=== PATIENT | male | born 1985 | race Caucasian/White ===

== ENCOUNTER 2019-12-11 13:09 | Emergency (ER) | payer MEDICAID, SELFPAY ==
[2019-12-11 13:11] VITALS: BP 157/110; PULSE 88; RESP 14; TEMP 36.3; O2SAT 98; BMI 20.7
--- NOTE | 2019-12-11 13:26 | EKG12_ITS ---
Test Reason : Blood Pressure : / mmHG Vent. Rate : 071 BPM Atrial Rate : 071 BPM P-R Int : 148 ms QRS Dur : 086 ms QT Int : 400 ms P-R-T Axes : 070 064 051 degrees QTc Int : 434 ms Normal sinus rhythm Normal ECG Confirmed by GERMAINE BRAGG MD ([id number]), editor & co founder LINDA BAILEY ([id number] on 12/16/2019 2:09:17 PM Referred By: BELINDA/MODESTO Confirmed By:GERMAINE BRAGG MD
--- NOTE | 2019-12-11 13:26 | RAD_ITS ---
STUDY: X-RAY CHEST REASON FOR EXAM: Male, 34 years old. no hx of seizures, but was found today on the floor shaking TECHNIQUE: Single AP portable view of the chest. COMPARISON: None. FINDINGS: The lungs are clear and expanded. There is no demonstrated pleural abnormality. Normal size heart. Normal mediastinum and vazquez. Normal visualized pulmonary arteries. Normal visualized aortic arch and descending thoracic aorta. Normal visualized thoracic spine. Normal visualized ribs, clavicles, and shoulders. There is no demonstrated abnormality of the visualized soft tissue structures of the upper abdomen. RAD/Chest 1 View (Portable) IMPRESSION: Normal x-ray examination of the chest. Electronically Signed: Luisana Huston, at 14:57 EDT Tel , Service support ,
--- NOTE | 2019-12-11 13:26 | CT_ITS ---
STUDY: CT BRAIN WITHOUT CONTRAST REASON FOR EXAM: Male, 34 years old. Seizures RADIATION DOSAGE (If Supplied By Facility): CTDIvol = ( 44.99 ) mGy, DLP = ( 779.24 ) mGycm TECHNIQUE: Transaxial CT imaging of the brain was performed without administration of intravenous contrast material. Individualized dose optimization techniques were used for this CT. COMPARISON: No relevant priors. FINDINGS: Normal soft tissue structures. Normal calvarium. Normal size ventricles and extra-axial spaces for the patient''s age. Normal white matter tracts of the cerebral hemispheres. Normal basal ganglia and thalami. Normal brainstem. Normal cerebellum. There is no intracranial hemorrhage. There are no findings of an acute ischemic infarction. Minimal mucosal thickening in the right maxillary sinus CT/Brain/Head without Contrast IMPRESSION: Normal unenhanced CT scan of the brain. Electronically Signed: Camacho Deleon MD at 14:22 EDT , Service support ,
[2019-12-11 13:43] LABS: Absolute Lymphocyte Count 1.41 X10^3/uL (0.83-4.51); Absolute Neutrophil Count 7.7 X10^3/uL (2.0-7.7); Basophil# 0.06 X10^3/uL; Basophil% 0.6 % (0-1); Eosinophil# 0.05 X10^3/uL; Eosinophils% 0.5 % (0-5); Hematocrit 44.4 % (40-54); Hemoglobin 14.9 g/dL (13.0-16.5); Lymphocyte # 1.41 X10^3/ul (4.0); Mean Corp Hgb Conc 33.6 g/dL (32-36); Mean Corpuscular Hgb 31.2 pg (27.0-32.0); Mean Corpuscular Volume 93.1 fL (80-94); Mean Platelet Vol. 9.4 fl (6.2-12.0); Monocyte# 0.83 X10^3/uL; Monocyte% 8.3 % (0-10); NRBC Flagged by Analyzer 0 % (0-5); Neutrophil # 7.66 X10^3/uL (2.7-7.7); Neutrophil % 76.2 % (47-70); Platelet Count 262 K/mm3 (150-450); RBC Distribution Width CV 12.7 % (11.6-14.6); RBC Distribution Width SD 43.4 fl (35.1-43.9); Red Blood Count 4.77 M/mm3 (4.6-6.2); White Blood Count 10.1 K/mm3 (4.4-11.0)
[2019-12-11 13:45] LABS: Bacteria 0 SEEN /hpf (None Seen); Mucous, Urine 0 SEEN /hpf (<or=2+); Red Blood Cells-Urine 0 SEEN /hpf (0-5); Squamous Epithelial Cells - UA 0 SEEN /hpf (0-5); White Blood Cells 0 SEEN /hpf (0-5)
--- NOTE | 2019-12-11 13:48 | ED.VIS.GEN ---
History of Present Illness Chief Complaint: Seizure Informant: Patient Onset: Today Context: Sudden Onset Narrative: Patient is a 34-year-old male presenting with seizure activity. Patient was at work when he suddenly called everything go black and passed out. His coworker states he had generalized seizure activity. He was out for approximately 8 minutes until he started to come to. Is not clear if he was actually seizing this whole time. This happened about 1 hour prior to arrival. Patient denies any urinary incontinence or feeling like he bit his tongue. He does not have any medical issues. He states he has not seen a doctor in a couple years. He admits to weekly beer drinking and occasional marijuana use. He denies any other illicit substance use. He denies any history of alcohol withdrawal. He did not recently stop drinking. He notes he normally drinks 2 cups of coffee today and instead had small red bowl this morning. He notes his father had one seizure in the past but attributed to high blood pressure. Patient currently feels a little bit weak but otherwise well. He states he has not eaten today. He denies any other complaints at this time. Past Medical History - Allergies and Home Meds Allergies/Adverse Reactions: Allergies No Known Allergies Allergy (Verified 12/11/19 13:10) Primary Care Physician: NOT,DEFINED [NON-STAFF] - Past Medical History: None Surgical History: no surgical history Smoking Status: Current every day smoker Alcohol: Heavy - 12 pack a week Drugs: Marijuana Review of Systems General: Denies: Chills, Fever, Sweats Eyes: Denies: Visual changes - bilaterally, Diplopia ENT: Denies: Rhinorrhea, Sore throat Cardiovascular: Denies: Chest pain, Palpitations Respiratory: Denies: Dyspnea, Cough, Dyspnea on exertion Gastrointestinal: Denies: Abdominal pain, Nausea, Vomiting, Diarrhea Genitourinary: Denies: Dysuria, Hematuria, Frequency Musculoskeletal: Denies: Back pain, Extremity Pain Skin: Denies: Rash, Wounds Neurological: Reports: - - Seizure like activity. Denies: Headache, Weakness, Numbness Physical Exam Vital Signs/Narrative: Vital Signs Temp Pulse Resp BP Pulse Ox 12/11/19 13:11 97.3 F L 88 14 157/110 H 98 Inital Vital Signs reviewed: Yes General: Well nourished, Well developed, No Acute Distress Head: Normocephalic, Atraumatic Eyes: Perrl, EOMI ENT: Moist mucous membranes, No rhinorrhea, TM's clear Neck: Supple, Nontender Cardiovascular: Regular rate, Regular rhythm, No murmurs Respiratory: No distress, CTA bilaterally, Chest nontender Abdomen: Soft, Nontender, Nondistended, Normal bowel sounds Back: Nontender, Normal Inspection Extremities: Nontender, No edema Skin: Normal color, No rash Neurological: Alert, Oriented x3, Cranial nerves II-XII grossly intact, Normal Strength, Normal Sensation, Normal Gait, - - Normal coordination Psychological: Normal affect, Normal Mood Diagnostic/Tx/Re-eval Clinical Impression(s) from Imaging Studies Brain CT 12/11/19 13:26 IMPRESSION: Normal unenhanced CT scan of the brain. Electronically Signed: Camacho Deleon MD at 14:22 EDT , Service support , Chest X-Ray 12/11/19 13:26 IMPRESSION: Normal x-ray examination of the chest. Electronically Signed: Luisana Huston at 14:57 EDT Tel , Service support , Laboratory Data 12/11/19 12/11/19 12/11/19 13:30 13:30 13:40 WBC 10.1 RBC 4.77 Hgb 14.9 Hct 44.4 MCV 93.1 MCH 31.2 MCHC 33.6 RDW Std Deviation 43.4 RDW Coeff of Fco 12.7 Plt Count 262 MPV 9.4 Immature Gran % (Auto) 0.400 Neut % (Auto) 76.2 H Lymph % (Auto) 14.0 L [place] % (Auto) 8.3 Eos % (Auto) 0.5 Baso % (Auto) 0.6 Absolute Neuts (auto) 7.7 Absolute Lymphs (auto) 1.41 Nucleated RBC % 0 Sodium 135 L Potassium 3.5 Chloride 103 Carbon Dioxide 24.0 Anion Gap 8 BUN 14 Creatinine 0.74 Estim Creat Clear Calc 128.72 Est GFR (MDRD) Af Amer 157 Est GFR (MDRD) Non-Af 130 BUN/Creatinine Ratio 18.9 Glucose 92 Calcium 8.7 Total Bilirubin 0.60 AST 71 H ALT 85 H Alkaline Phosphatase 39 L Total Protein 7.4 Albumin 4.2 Globulin 3.2 Albumin/Globulin Ratio 1.3 Urine Color Straw Urine Clarity Clear Urine pH 7.0 Ur Specific [place] 1.010 Urine Protein Negative Urine Glucose (UA) Normal Urine Ketones Negative Urine Occult Blood Negative Urine Nitrite Negative Urine Bilirubin Negative Urine Urobilinogen Normal Ur Leukocyte Esterase Negative Urine RBC 0 SEEN Urine WBC 0 SEEN Ur Squamous Epith Cells 0 SEEN Urine Bacteria 0 SEEN Urine Mucus 0 SEEN Urine Opiates Screen Urine Methadone Screen Ur Barbiturates Screen Ur Phencyclidine Scrn Ur Amphetamines Screen U Methamphetamin-MDMA U Benzodiazepines Scrn Urine Cocaine Screen U Cannabinoids Screen Ur Drug Screen Comment 12/11/19 13:40 WBC RBC Hgb Hct MCV MCH MCHC RDW Std Deviation RDW Coeff of Fco Plt Count MPV Immature Gran % (Auto) Neut % (Auto) Lymph % (Auto) [place] % (Auto) Eos % (Auto) Baso % (Auto) Absolute Neuts (auto) Absolute Lymphs (auto) Nucleated RBC % Sodium Potassium Chloride Carbon Dioxide Anion Gap BUN Creatinine Estim Creat Clear Calc Est GFR (MDRD) Af Amer Est GFR (MDRD) Non-Af BUN/Creatinine Ratio Glucose Calcium Total Bilirubin AST ALT Alkaline Phosphatase Total Protein Albumin Globulin Albumin/Globulin Ratio Urine Color Urine Clarity Urine pH Ur Specific [place] Urine Protein Urine Glucose (UA) Urine Ketones Urine Occult Blood Urine Nitrite Urine Bilirubin Urine Urobilinogen Ur Leukocyte Esterase Urine RBC Urine WBC Ur Squamous Epith Cells Urine Bacteria Urine Mucus Urine Opiates Screen NEGATIVE Urine Methadone Screen NEGATIVE Ur Barbiturates Screen NEGATIVE Ur Phencyclidine Scrn NEGATIVE Ur Amphetamines Screen NEGATIVE U Methamphetamin-MDMA NEGATIVE U Benzodiazepines Scrn NEGATIVE Urine Cocaine Screen NEGATIVE U Cannabinoids Screen NEGATIVE Ur Drug Screen Comment - Rhythm Strip Rhythm Strip: Sinus Rhythm Rate: 71 Ectopy: None - EKG Initial EKG Interpretation: Sinus Rhythm, - - Sinus rate him at a rate of 71 Normal intervals Normal axis Normal ST segments - Medical Decision Making Is evaluated for an episode of seizure-like activity. It was witnessed by a coworker and described as all over body shaking. Patient describes being postictal at the scene. Patient is returned to his baseline currently. He denies any seizure history. He has a normal neurologic exam. He has had no recent trauma. He denies any sudden alcohol cessation or significant drug use. Work-up including head CT, EKG, CBC and CMP are all unremarkable. Patient does not have any meningeal signs I do not suspect meningeal encephalitis. Patient is given [facility] to follow-up with in [place]. He is given seizure precautions and instructed not to drive or swim/bathe until cleared by neurology. Patient is counseled on signs and symptoms requiring return to the emergency room. As this is patient's first seizure and it was unwitnessed by medical staff I do not think prescribing antiepileptics is indicated at this time. Patient verbalizes agreement and understand this plan. Patient discharged home in stable and improved condition. ED Disposition - Plan for ED Patient: Disposition: Home or Assisted Living Diagnosis: Seizure-like activity Instructions: ED Seizure New Onset Unk Cause Additional Instructions: Please follow-up at the neuro care center in [place] Address is [address] [place] [address] Phone #[phone] Call them today or tomorrow and let them know you were seen in the ER for first-time seizure and need quick neurologic follow-up.
[2019-12-11 13:59] LABS: ALB/GLOB Ratio 1.3 RATIO (0.9-2.4); AST(SGOT) 71 U/L (15-37); Alanine Aminotransfer ALT/SGPT 85 U/L (16-61); Albumin, Serum 4.2 g/dL (3.2-5.0); Alkaline Phosphatase 39 U/L (45-117); Anion Gap 8 (5-15); BUN 14 mg/dL (7-18); BUN/Creat Ratio 18.9 RATIO (10-20); Calcium,Total 8.7 mg/dL (8.5-10.1); Chloride 103 mmol/L (98-107); Creatinine, Serum 0.74 mg/dL (0.70-1.30); EST Glomerular Filtration Rate 130 mL/min (>60); Est Glom Filt Rate - Afr Amer 157 mL/min (>60); Estimated Creatinine Clearance 128.72 ml/min; Globulin 3.2 g/dL (2.2-4.2); Glucose 92 mg/dL (74-106); Potassium 3.5 mmol/L (3.5-5.1); Protein, Total 7.4 g/dL (6.4-8.2); Sodium Level 135 mmol/L (136-145)
[2019-12-11 14:03] LABS: Color, Urine Straw (Yellow); Glucose, Dipstick Normal (Normal); Ketone-Dipstick Negative (Negative); Leukocyte Esterase-Dipstick Negative /ul (Negative); Nitrite-Dipstick Negative (Negative); Occult Blood-Urine Negative /ul (Negative); Protein-Dipstick Negative (Negative); Urine Bilirubin Dipstick Negative (Negative); Urine Clarity Clear (Clear); Urine Urobilinogen Normal (Normal)
[2019-12-11 14:11] LABS: Amphetamine Urine VISTA NEGATIVE (<1000 ng/mL); Barbiturate Urine VISTA NEGATIVE (< 200 ng/mL); Benzodiazepine Urine VISTA NEGATIVE (< 200 ng/mL); Cocaine Urine VISTA NEGATIVE (< 300 ng/mL); Ecstacy Urine VISTA NEGATIVE (< 500 ng/mL); Methadone Urine VISTA NEGATIVE (< 300 ng/mL); PCP Urine VISTA NEGATIVE (< 25 ng/mL); THC Urine VISTA NEGATIVE (< 50 ng/mL); Vista UDS pH Range 6
[2019-12-11 15:47] VITALS: BP 148/92; PULSE 89; RESP 16; O2SAT 98
== END 2019-12-11 15:48 | disposition home or self-care (01) ==
PROVIDERS: Emergency Provider Emergency Medicine
DX: R56.9 Unspecified convulsions (principal); F17.210 Nicotine dependence, cigarettes, uncomplicated; F10.10 Alcohol abuse, uncomplicated; F12.90 Cannabis use, unspecified, uncomplicated
CPT/HCPCS: 70450; 71045; 80053; 80307; 81001; 85025; 93005; 99284; A4216

== ENCOUNTER 2020-02-05 03:21 | Inpatient (IN) | payer MEDICAID, SELFPAY ==
[2020-02-05] VITALS (9 sets, daily range): BP systolic 102–131; BP diastolic 69–94; PULSE 108–140; RESP 16–20; TEMP 36.9–39; O2SAT 96–100; BMI 19.0; BMI 18.3; BMI 18.4
--- NOTE | 2020-02-05 03:27 | CT_ITS ---
STUDY: CT FACIAL BONES WITH CONTRAST REASON FOR EXAM: Male, 34 years old. RED AND SWOLLEN RT EYE,VOMITING RADIATION DOSAGE (If Supplied By Facility): CTDIvol = ( 29.38 ) mGy, DLP = ( 598.88 ) mGycm TECHNIQUE: The patient was scanned in a multi detector CT scanner. Transaxial imaging was performed following the intravenous administration of IV 100mL Isovue-370. Sagittal and coronal images were reconstructed. Individualized dose optimization techniques were used for this CT. COMPARISON: None. FINDINGS : There is right-sided periorbital soft tissue edema. There is preseptal edema. There is a suggestion of enhancement underside of the eyelid. There is no visualized intra-articular extraconal space inflammatory change. However there is a small focus of fluid and gas bubbles between the eyelid and outer layer of the anterior globe. There is edema of the lacrimal sac at the medial canthus. Normal orbital aleman .Normal nasal bones and anterior nasal spine. Normal facial bones. There is no demonstrated fracture. There is minimal mucosal thickening of the maxillary sinuses CT/Sinus/Facial Bone WITH Contras IMPRESSION: Findings are suspicious for right-sided preseptal cellulitis with acute conjunctivitis and probable developing acute edema or infection of the medial lacrimal gland. Visualized intraocular extraconal or retroconal space infection. Electronically Signed: Julieta Chavez MD at 4:25 EDT Tel , Service support ,
--- NOTE | 2020-02-05 03:28 | ED.VIS.GEN ---
History of Present Illness Chief Complaint: Eye Problem Informant: Patient Context: - - awoke w/ sx Timing: Continuous Quality: pain Location: around R eye, mainly below Current Severity: Severe Maximum Severity: Severe Worsened by: palpation Relieved by: leaving alone Associated Symptoms: chills Narrative: Patient states he went to bed around 9:00, he had some very minor soreness in the area below his right eye, but no swelling, lesions, pustules, recent injury or insect bites, itching, or any rash/color changes in the affected area. He woke up around 1 or 2 hours ago, with severe swelling and pain below his right eye. He presents here at almost 3:30 AM, having cold chills feeling febrile but is not, difficulty seen because of swelling, and clear discharge coming from the eye. He is healthy with no medical problems denies IV drug use. He does not use contacts. He is supposed to have glasses but does not currently have any. Past Medical History - Allergies and Home Meds Allergies/Adverse Reactions: Allergies No Known Allergies Allergy (Verified 12/11/19 13:10) Primary Care Physician: Care Physician,No Primary [Primary Care Provider] - Past Medical History: None Surgical History: no surgical history Smoking Status: Current every day smoker Review of Systems General: Reports: Chills. Denies: Fever, Sweats Eyes: Reports: Blurred vision - right - a little, - - Trouble seeing out of right eye because of swelling. Tearing/discharge from right eye. Severe pain in facial tissues below right eye.. Denies: Diplopia ENT: Denies: Rhinorrhea, Sore throat Cardiovascular: Denies: Chest pain, Palpitations Respiratory: Denies: Dyspnea, Cough, Dyspnea on exertion Gastrointestinal: Denies: Abdominal pain, Nausea, Vomiting, Diarrhea, Melena, Hematochezia Genitourinary: Denies: Dysuria, Hematuria, Frequency Musculoskeletal: Denies: Back pain, Extremity Pain Skin: Reports: Abscess. Denies: Rash, Wounds Neurological: Denies: Headache, Weakness, Numbness Physical Exam Vital Signs/Narrative: Vital Signs Temp Pulse Resp BP Pulse Ox 02/05/20 03:22 98.4 F 134 H 16 125/70 H 99 Inital Vital Signs reviewed: Yes General: Well nourished, Well developed, No Acute Distress Head: Normocephalic, Atraumatic Eyes: Perrl - no APD, EOMI - EOM are intact, painful in right eye, - - Mild conjunctival injection diffusely right eye. Mild clear fluid discharge from right eye, no purulent discharge. There is periorbital edema of the eyelids of the right eye, worse inferior, very tender. He is able to see but barely due to swelling of the eyelids. ENT: Moist mucous membranes, No rhinorrhea, - - Tense very tender indurated skin below the right eye and including the inferior eyelid, consistent with an abscess that is approximately 5-6 cm in diameter. There is an area near the medial canthus that appears to be the source of this, that may have been a pustule at one point. The bulbar and palpebral conjunctive a are difficult to evaluate due to the amount of pain and tenderness and swelling. The tissues just caudal to the eye are erythematous, but the tissues superiorly are not necessarily. Neck: Supple, Nontender Cardiovascular: Regular rate, Regular rhythm, No murmurs, Tachycardia Respiratory: No distress, CTA bilaterally, Chest nontender Extremities: Nontender, No edema Skin: Normal color, No rash, No Trauma, - - Abscess below right eye and involving the inferior eyelid as described above Neurological: Alert, Oriented x3, Cranial nerves II-XII grossly intact, Normal Strength, Normal Sensation, Normal Gait Psychological: Normal affect, Normal Mood Diagnostic/Tx/Re-eval Impressions Facial/Sinus 02/05/20 03:27 IMPRESSION: Findings are suspicious for right-sided preseptal cellulitis with acute conjunctivitis and probable developing acute edema or infection of the medial lacrimal gland. Visualized intraocular extraconal or retroconal space infection. Electronically Signed: Julieta Chavez MD at 4:25 EDT Tel , Service support , 02/05/20 03:27 CT Facial [Sinus/Facial Bone WITH Contras] [CT] Stat Laboratory Results 02/05/20 02/05/20 02/05/20 03:30 03:30 03:55 WBC 44.1 H* RBC 5.33 Hgb 17.0 H Hct 49.5 MCV 92.9 MCH 31.9 MCHC 34.3 RDW Std Deviation 43.8 RDW Coeff of Fco 13.0 Plt Count EXTERNAL GRINDER TOOL MPV 8.8 Immature Gran % (Auto) EXTERNAL GRINDER TOOL Neut % (Auto) EXTERNAL GRINDER TOOL Lymph % (Auto) EXTERNAL GRINDER TOOL [place] % (Auto) EXTERNAL GRINDER TOOL Eos % (Auto) EXTERNAL GRINDER TOOL Baso % (Auto) EXTERNAL GRINDER TOOL Absolute Neuts (auto) 39.3 H Absolute Lymphs (auto) 3.09 Total Counted 100 Neutrophils % (Manual) 64 Band Neutrophils % 25 H Lymphocytes % (Manual) 7 L Monocytes % (Manual) 4 Nucleated RBC % EXTERNAL GRINDER TOOL Differential Comment Diff Path Review May foll Reactive Lymphocytes RARE Platelet Estimate ADEQUATE Plt Morphology Comment CLUMPED Polychromasia 2+ Sodium 133 L Potassium 4.0 Chloride 97 L Carbon Dioxide 26.0 Anion Gap 10 BUN 12 Creatinine 1.19 Estim Creat Clear Calc 75.76 Est GFR (MDRD) Af Amer 91 Est GFR (MDRD) Non-Af 75 BUN/Creatinine Ratio 10.1 Glucose 126 H Lactic Acid 1.9 Calcium 9.2 - Medical Decision Making Lactate is within normal limits. Patient meets criteria for sepsis given his tachycardia and significant leukocytosis. After blood cultures were obtained, he was given IV vancomycin empirically. CT was obtained, it shows preseptal cellulitis and visualized intraocular extraconal or retroconal space infection in the impression and there is no visualized intra-articular extraconal space inflammatory change in the findings. Also noted in the impression is acute edema or infection of the medial lacrimal gland whereas in the impression she states there is edema of the lacrimal sac at the medial canthus with no mention of the lacrimal gland, which is lateral. I discussed these findings with the radiologist Dr. Chavez. She states that these are typos. The intra-articular should read intraocular. In the impression as above, she states it should read no visualized intraocular extraconal or retroconal space infection. Therefore, all of this is consistent with preseptal cellulitis as opposed to orbital cellulitis. The radiologist agreed with this statement. Visual acuity was checked, 20/50 in the right eye, 20/30 in the left eye. Discussed at length with Dr. Ramirez ophthalmology, she agrees with seeing the patient in the hospital, and we will admit him for IV antibiotics and continued therapy. She requests that anaerobic coverage be added to the vancomycin, in addition to ciprofloxacin drops, 1 drop every 2 hours. ED Disposition - Plan for ED Patient: Disposition: Acute Care Hospital [facility] Diagnosis: Sepsis, Preseptal cellulitis of right eye Referrals: Care Physician,No Primary [Primary Care Provider] -
[2020-02-05] MEDS: Morphine 4 MG/ML Syringe IV (03:33)
[2020-02-05 03:36] LABS: Hematocrit 49.5 % (40-54); Mean Corp Hgb Conc 34.3 g/dL (32-36); Mean Corpuscular Hgb 31.9 pg (27.0-32.0); Mean Corpuscular Volume 92.9 fL (80-94); Mean Platelet Vol. 8.8 fl (6.2-12.0); POSITIVE COUNT YES; POSITIVE DIFFERENTIAL YES; POSITIVE MORPHOLOGY YES; RBC Distribution Width SD 43.8 fl (35.1-43.9); Red Blood Count 5.33 M/mm3 (4.6-6.2)
[2020-02-05] MEDS: Vancomycin IV 1,000 MG/200 ML BAG 200 MG IV ×2 (03:36→22:07)
[2020-02-05 03:37] LABS: White Blood Count 44.1 K/mm3 (4.4-11.0)
[2020-02-05 03:51] LABS: Anion Gap 10 (5-15); BUN 12 mg/dL (7-18); BUN/Creat Ratio 10.1 RATIO (10-20); Calcium,Total 9.2 mg/dL (8.5-10.1); Chloride 97 mmol/L (98-107); Creatinine, Serum 1.19 mg/dL (0.70-1.30); EST Glomerular Filtration Rate 75 mL/min (>60); Est Glom Filt Rate - Afr Amer 91 mL/min (>60); Estimated Creatinine Clearance 75.76 ml/min; Glucose 126 mg/dL (74-106); Sodium Level 133 mmol/L (136-145)
[2020-02-05 04:01] LABS: Differential Indicated MANUAL DIFF
[2020-02-05 04:02] LABS: Absolute Neutrophil Count 39.3 X10^3/uL (2.0-7.7); Lymphocyte 7 % (19-41); Monocyte 4 % (0-10); Neutrophil # 39.25 X10^3/uL (2.7-7.7); Neutrophil-Band 25 % (0-5); Neutrophil-Segmented 64 % (47-70); Total Cells Counted 100 (MANUAL DIFF)
[2020-02-05 04:03] LABS: Absolute Lymphocyte Count 3.09 X10^3/uL (0.83-4.51); Lymphocyte # 3.09 X10^3/ul (4.0); Platelet Estimate ADEQUATE (ADEQ); Platelet Morphology CLUMPED
[2020-02-05 04:04] LABS: Polychromasia 2+; Reactive Lymphocyte RARE
[2020-02-05 04:06] LABS: Scan Smear per Review Criteria MANUAL DIFF
[2020-02-05 04:27] LABS: Lactic Acid 1.9 mmol/L (0.4-1.9)
--- NOTE | 2020-02-05 05:09 | HP.PCM_ITS ---
Problem List (1) Sepsis Status: Acute Qualifiers: Sepsis type: sepsis due to unspecified organism Sepsis acute organ dysfunction status: unspecified Qualified Code(s): A41.9 - Sepsis, unspecified organism (2) Preseptal cellulitis of right lower eyelid Status: Acute (3) Tobacco use Status: Chronic History of Present Illness Date of Admission: 02/05/20 Chief Complaint: R eye pain, Edema The patient is a 34 y/o M w/ PMHx: Tobacco use who presents to the [facility] ED on 02/05/20 with history of onset day prior to ED presentation discomfort inferior to his right eye but no recent injury or trauma awakening approximately 2:58 AM prior to ED presentation with severe swelling and pain below his right eye with onset of chills and some difficulty seeing secondary to severity of edema with clear discharge from the eye prompting eventual ED presentation. Work-up in the ED included T 98.4, heart rate 134, BP 125/70, respiratory rate 16, 99% on room air, CBC with WBC 44.1, hemoglobin 17, platelet 403 with significant left shift, BMP with sodium 133, chloride 97, glucose 126, lactic acid 1.9, blood culture x2 pending per ED, CT facial with findings suspicious for right-sided preseptal cellulitis with acute conjunctivitis and probable developing acute edema or infection of the medial lacrimal gland. in the ED patient's administered vancomycin. ED visual acuity testing with 20/30 left eye and 20/50 right eye. Past Medical History Past Medical History (Chronic Problems): Chronic Problems Tobacco use (Chronic) Allergies No Known Allergies Allergy (Verified 12/11/19 13:10) Home Medications: Ambulatory Orders Medication Instructions Recorded NK 12/11/19 Surgical History: - - Patient notes right index finger surgery. Psychiatric History: No pertinent psych hx Lives: With Family Smoking Status: Current every day smoker - Patient smokes approximately 1 pack/day cigarette tobacco usage. Tobacco Use: Cigarettes Alcohol: Occasional Drugs: None - *Family History Paternal History Items: Hypertension Maternal History Items: - - Patient denies any market maternal family history including heart disease, diabetes or cancer. Review of Systems Constitutional: Reports: Anorexia, Chills, Malaise, Weakness, Fatigue. Denies: Fever, Weight Change Eyes: Reports: Drainage, Eyelid Inflammation, Pain, Redness, Vision Change HEENT: Denies: Head Aches, Sinus Congestion, Sinus Drainage Cardiovascular: Denies: Chest Pain, Palpitations Respiratory: Denies: Cough, Shortness of breath at rest, Sputum production Gastrointestinal: Denies: Abdominal Pain, Nausea, Vomiting Genitourinary: Denies: Dysuria Musculoskeletal: Denies: Joint Pain, Joint Tenderness Skin: Denies: Rash, Wounds Neurological: Reports: Blurred vision. Denies: Focal weakness, Numbness, Tingling Psychiatric: Denies: Anxiety, Depression, Homicidal Ideations, Suicidal [place] ations Hematologic/ Lymphatic: Denies: Easy Bruising, Easy Bleeding VTE Information - Inpt Only VTE Present on Admission: No VTE Mechan Device Prophylaxis: None VTE Pharm Prophylaxis ordered?: No Reason prophylaxis not ordered:: Treatment Not Indicated Patient Problems: Active and Suspected Problems Sepsis (Acute) Preseptal cellulitis of right lower eyelid (Acute) Subjective: Patient seated upright in the ED bed, fatigued and uncomfortable appearing. Objective: Physical Examination: General: awake, alert, oriented x 3 and cooperative, seated upright in the ED bed, fatigued and uncomfortable appearing. Skin: normal color, turgor, no icterus, cyanosis except significant right eye periorbital including upper and lower lid erythema, edema. HEENT: AT/NC, EOM left eye intact, extreme difficulty visualizing right eye secondary to edema, serous drainage noted, visualized eye with attempts to open lids injected, sensitive to light per patient report, indurated firm lower greater than upper lid with very circumscribed region, PERRLA, dry MM, no carotid bruits or JVD noted. Lungs: CTA bilaterally, moderate effort, mild decrease BL bases, no rales, ronchi or wheezing. Heart: Tachycardic with regular rhythm; no gallop, rub audible. Abdomen: soft, NTTP, ND, normal BS, no HSM. Extremities: no cyanosis, clubbing, or edema. Neurological: patient awake, alert, oriented as noted; cognitive function intact; pupils equally reactive to light and accomodation; cranial nerves grossly normal except difficulty with evaluation as noted of right eye secondary to acute presentation, moving all 4 extremities, no focal deficits, strength preserved. Psychiatric: affect appears fatigued, uncomfortable, no acute evidence of depressive or anxiety feelings. - Physical Exam Vitals/I&O's: Vital Signs Temp Pulse Resp BP Pulse Ox 98.4 F 134 H 16 125/70 H 99 02/05/20 03:26 02/05/20 03:26 02/05/20 03:26 02/05/20 03:26 02/05/20 03:26 Oxygen Delivery Method Room Air Weight: 132 lb 7.965 oz Body Mass Index (BMI) 19.0 Intake and Output for Last 24 Hours 02/03/20 02/04/20 02/05/20 23:59 23:59 23:59 Intake Total 200.00 / 200.00 Balance 200.00 / 200.00 Laboratory Results 02/05/20 03:30: WBC 44.1 H*, RBC 5.33, Hgb 17.0 H, Hct 49.5, MCV 92.9, MCH 31.9, MCHC 34.3, RDW Std Deviation 43.8, RDW Coeff of Fco 13.0, Plt Count DOG DAY CARE ATTENDANT, MPV 8.8, Immature Gran % (Auto) DOG DAY CARE ATTENDANT, Neut % (Auto) DOG DAY CARE ATTENDANT, Lymph % (Auto) DOG DAY CARE ATTENDANT, [place] % (Auto) DOG DAY CARE ATTENDANT, Eos % (Auto) DOG DAY CARE ATTENDANT, Baso % (Auto) DOG DAY CARE ATTENDANT, Absolute Neuts (auto) 39.3 H, Absolute Lymphs (auto) 3.09, Total Counted 100, Neutrophils % (Manual) 64, Band Neutrophils % 25 H, Lymphocytes % (Manual) 7 L, Monocytes % (Manual) 4, Nucleated RBC % DOG DAY CARE ATTENDANT, Differential Comment , Diff Path Review May foll, Reactive Lymphocytes RARE, Platelet Estimate ADEQUATE, Plt Morphology Comment CLUMPED, Polychromasia 2+ 02/05/20 03:30: Sodium 133 L, Potassium 4.0, Chloride 97 L, Carbon Dioxide 26.0, Anion Gap 10, BUN 12, Creatinine 1.19, Estim Creat Clear Calc 75.76, Est GFR (MDRD) Af Amer 91, Est GFR (MDRD) Non-Af 75, BUN/Creatinine Ratio 10.1, Glucose 126 H, Calcium 9.2 02/05/20 03:55: Lactic Acid 1.9 Current Medications Sodium Chloride 1,000 ml/ N/A 1,000 mls @ 60.1 mls/hr IV .[id number] CONSUELO Stop: 02/06/20 03:31 Last Admin: 02/05/20 03:34 Dose: 1 ml/kg/hr, 60.1 mls/hr Documented by: Assessment/Plan All Active Problems Sepsis (Acute) Preseptal cellulitis of right lower eyelid (Acute) The patient is a 34 y/o M w/ PMHx: Tobacco use who presents to the [facility] ED on 02/05/20 with history of onset severe swelling and pain below his right eye with onset of chills and some difficulty seeing secondary to severity of edema with clear discharge. 1. Acute Sepsis secondary to Preseptal Cellulitis: Will admit to medical surgical floor, maintain on vancomycin, Rocephin, flagyl IV and cipro 1 drop q 2 hour pending evaluation per ophthalmology with planned evaluation at ~ 8 am, maintain n.p.o. status in case of operative intervention needs with oral intake allowance if clinically improving and cleared, PRN oral and IV pain regimen, PRN antiemetic. 2. Tobacco Abuse: Encouraged cessation, inpatient consultation per RT, NR if desired. 3. DVT prophylaxis: Low risk, ambulation encouraged. Inpatient E&M: [id number] Init Hosp L3
--- NOTE | 2020-02-05 06:27 | PCM.RX.CS ---
Consult Pharmacy has been consulted to manage selected antiobiotic: Vancomycin Type of Consult: New start Suspected Infection: Sepsis Labs: Sodium 133 mmol/L (136-145) L 02/05/20 03:30 Potassium 4.0 mmol/L (3.5-5.1) 02/05/20 03:30 Chloride 97 mmol/L (98-107) L 02/05/20 03:30 Carbon Dioxide 26.0 mmol/L (21.0-32.0) 02/05/20 03:30 Anion Gap 10 (5-15) 02/05/20 03:30 BUN 12 mg/dL (7-18) 02/05/20 03:30 Creatinine 1.19 mg/dL (0.70-1.30) 02/05/20 03:30 Est GFR (MDRD) Af Amer 91 mL/min (>60) 02/05/20 03:30 Est GFR (MDRD) Non-Af 75 mL/min (>60) 02/05/20 03:30 BUN/Creatinine Ratio 10.1 RATIO (-20) 02/05/20 03:30 Glucose 126 mg/dL (74-106) H 02/05/20 03:30 Weight used for dosin.1 kg Estimated Creatinine Clearance: 62.25 Goal Trough: 15-20 mcg/mL Pharmacy Plan for Drug Dosing: Pharmacy Service will continue to monitor and adjust dosing as required. Medications Vancomycin HCl () 500 mg in 100 mls @ 100 mls/hr IV Q12H CONSUELO Discontinued Medications Vancomycin HCl (Vancomycin) 1,000 mg in 200 mls @ 200 mls/hr IV NOW STA Stop: 02/05/20 04:25 Last Admin: 02/05/20 05:05 Dose: Infused Documented by: Follow-Up Labs: Trough Vancomycin Labs to be done on [date and time ordered]: 02/05 @ 8927
[2020-02-05] MEDS: Acetaminophen 325 MG Tablet 650 MG PO ×3 (06:28→20:20)
[2020-02-05] MEDS: oxyCODONE 5 MG Tablet PO ×3 (06:28→18:44)
[2020-02-05] MEDS: Ceftriaxone 1 GM/50 ML BAG IV (06:28)
[2020-02-05] MEDS: 0.9% Normal Saline 1,000 ML 100 ML IV (06:30)
[2020-02-05] MEDS: Ciprofloxacin 0.3% 2.5ml Bottle 1 DRP RIGHT EYE ×9 (06:33→22:09)
[2020-02-05] MEDS: 0.9% Saline Lock 10 ML Syringe IV ×2 (06:41→09:14)
[2020-02-05] MEDS: 0.9% Normal Saline 1,000 ML 999 ML IV ×2 (06:44→07:59)
[2020-02-05] MEDS: metroNIDAZOLE 500 MG/100 ML BAG 100 MG IV ×2 (06:59→13:02)
[2020-02-05] MEDS: HYDROmorphone 0.5 MG/0.5 ML SYRINGE IV ×2 (09:14→13:04)
[2020-02-05] MEDS: Famotidine 20 MG Tablet PO ×2 (09:17→22:09)
--- NOTE | 2020-02-05 10:30 | CON.PCM_ITS ---
Problem List (1) Preseptal cellulitis of right lower eyelid Status: Acute Reason for Consult Date of Consultation: 02/05/20 Reason for Consultation: Right eyelid swelling History of Present Illness: The patient is a 34 year old M [] with history of right eyelid swelling x 1 day. He states two days ago he had a pimple on his right cheek which he squeezed and than subsequently at 3 am he starting noticing increasing redness, swelling of his eyelids and he could not easily open his eyelids. Denies trauma, tooth pain, or any significant ocular history other than refractive error. Past Medical History Past Medical History (Chronic Problems): Chronic Problems Tobacco use (Chronic) Allergies No Known Allergies Allergy (Verified 12/11/19 13:10) Home Medications: Ambulatory Orders Medication Instructions Recorded NK 12/11/19 Surgical History: Surgical History (Last Updated 02/05/20 @ 10:[address] Beena Ramirez MD) H/O vasectomy Z98.52 Surgical History: - - Patient notes right index finger surgery. Psychiatric History: No pertinent psych hx Lives: With Family Smoking Status: Current every day smoker Tobacco Use: Cigarettes Alcohol: Occasional Drugs: None - *Family History Paternal History Items: Hypertension Maternal History Items: - - Patient denies any market maternal family history including heart disease, diabetes or cancer. Review of Systems Constitutional: Denies: Chills, Fever, Weight Change Eyes: Reports: Blurred vision, Redness HEENT: Denies: Head Aches, Sinus Congestion, Sinus Drainage Cardiovascular: Denies: Chest Pain, Palpitations Respiratory: Denies: Cough, Shortness of breath at rest, Sputum production Gastrointestinal: Denies: Abdominal Pain, Nausea, Vomiting Genitourinary: Denies: Dysuria Musculoskeletal: Denies: Joint Pain, Joint Tenderness Skin: Reports: Skin Changes - swelling right eyelids and cheek Neurological: Denies: Numbness, Tingling, Focal weakness Patient Problems: Active and Suspected Problems Sepsis (Acute) Preseptal cellulitis of right lower eyelid (Acute) Sepsis (Acute) Preseptal cellulitis of right eye (Acute) Objective: VA near without correction OD;J5, PH: J3 OS: J1 PERRL Motility full- but pain with OD eye movement ortho IOP: tonopen OD: 26 OS: 17 Bedside exam with 20 Diopter lens: tropicamide administered for dilation OU OS normal anterior and posterior exam, C/D 0.3 OD: External: 3+ upper and lower eyelid edema, eschar right cheek Conjunctiva: 2+ chemosis greatest superotemporal, mucopurulent matter Cornea: Clear A/C unable to assess at bedside Iris: round and reactive Lens: Clear Disc: 0.4 no edema Macula: flat Vessels: normal course and caliber Periphery: attached 360 degrees - Physical Exam Vitals/I&O's: Vital Signs Temp Pulse Resp BP Pulse Ox 99.6 F H 120 H 18 102/69 98 02/05/20 09:05 02/05/20 09:05 02/05/20 09:05 02/05/20 09:05 02/05/20 09:05 Oxygen Delivery Method Room Air Weight: 58.1 kg Body Mass Index (BMI) 18.3 Intake and Output for Last 24 Hours 02/03/20 02/04/20 02/05/20 23:59 23:59 23:59 Intake Total 2427.30 / 2427.30 Balance 2427.30 / 2427.30 Laboratory Results 02/05/20 03:30: WBC 44.1 H*, RBC 5.33, Hgb 17.0 H, Hct 49.5, MCV 92.9, MCH 31.9, MCHC 34.3, RDW Std Deviation 43.8, RDW Coeff of Fco 13.0, Plt Count AGRICULTURAL ENGINEERING TECHNICIAN, MPV 8.8, Immature Gran % (Auto) AGRICULTURAL ENGINEERING TECHNICIAN, Neut % (Auto) AGRICULTURAL ENGINEERING TECHNICIAN, Lymph % (Auto) AGRICULTURAL ENGINEERING TECHNICIAN, [place] % (Auto) AGRICULTURAL ENGINEERING TECHNICIAN, Eos % (Auto) AGRICULTURAL ENGINEERING TECHNICIAN, Baso % (Auto) AGRICULTURAL ENGINEERING TECHNICIAN, Absolute Neuts (auto) 39.3 H, Absolute Lymphs (auto) 3.09, Total Counted 100, Neutrophils % (Manual) 64, Band Neutrophils % 25 H, Lymphocytes % (Manual) 7 L, Monocytes % (Manual) 4, Nucleated RBC % AGRICULTURAL ENGINEERING TECHNICIAN, Differential Comment , Diff Path Review May foll, Reactive Lymphocytes RARE, Platelet Estimate ADEQUATE, Plt Morphology Comment CLUMPED, Polychromasia 2+ 02/05/20 03:30: Sodium 133 L, Potassium 4.0, Chloride 97 L, Carbon Dioxide 26.0, Anion Gap 10, BUN 12, Creatinine 1.19, Estim Creat Clear Calc 75.76, Est GFR (MDRD) Af Amer 91, Est GFR (MDRD) Non-Af 75, BUN/Creatinine Ratio 10.1, Glucose 126 H, Calcium 9.2 02/05/20 03:55: Lactic Acid 1.9 02/05/20 06:30: S.aureus Protein A PCR Pending, MRSA (PCR) Pending Current Medications Acetaminophen (Tylenol) 650 mg PO Q6H PRN PRN PRN Reason: Pain Score 1-10/Temp > 100.7 F Last Admin: 02/05/20 06:28 Dose: 650 mg Documented by: Al Hydroxide/Mg Hydroxide (Mylanta Ii) 30 ml PO Q6H PRN PRN PRN Reason: Gastric Burning Albuterol Sulfate (Ventolin Aerosols) 2.5 mg INHALATION Q2H PRN PRN PRN Reason: Dyspnea, wheezing Ciprofloxacin HCl (Ciloxan) 1 drop RIGHT EYE Q2H [facility] Last Admin: 02/05/20 09:16 Dose: 1 drop Documented by: Dextrose (D50w Syringe) 0 gm IV X1 PRN; Protocol PRN Reason: Hypoglycemia Famotidine (Pepcid) 20 mg PO BID [facility] Last Admin: 02/05/20 09:17 Dose: 20 mg Documented by: Glucagon () 1 mg IM .X1 PRN PRN Reason: Hypoglycemia Guaifenesin (Robitussin) 20 ml PO Q4H PRN PRN PRN Reason: COUGH Hydralazine HCl (Apresoline Iv) 10 mg IV Q4H PRN PRN PRN Reason: SBP > 160 Hydromorphone HCl (Dilaudid Inj) 0.5 mg IV Q4H PRN PRN PRN Reason: Pain Score 6-10/10 Last Admin: 02/05/20 09:14 Dose: 0.5 mg Documented by: Sodium Chloride () 1,000 mls @ 125 mls/hr IV .Q8H [facility] Last Infusion: 02/05/20 06:30 Dose: 0 mls/hr Documented by: Vancomycin IV Pharmacy to Dose (1 ea/ Sodium Chloride) 500 mls @ 250 mls/hr IV X1 PRN; Protocol PRN Reason: Rx to Dose Metronidazole (Flagyl) 500 mg in 100 mls @ 100 mls/hr IV Q8 [facility] Last Admin: 02/05/20 06:59 Dose: 100 mls/hr Documented by: Ceftriaxone Sodium (Rocephin) 1 gm in 50 mls @ 100 mls/hr IV Q24 [facility] Last Infusion: 02/05/20 06:59 Dose: Infused Documented by: Vancomycin HCl () 500 mg in 100 mls @ 100 mls/hr IV Q12H [facility] Magnesium Hydroxide (Milk Of Magnesia) 30 ml PO DAILY PRN PRN PRN Reason: Constipation Nicotine (Nicoderm Cq (Pbkc)) 21 mg TRANSDERM. DAILY CONSUELO Last Admin: 02/05/20 09:17 Dose: Not Given Documented by: Ondansetron HCl (Zofran) 4 mg IV Q8H PRN PRN PRN Reason: NAUSEA/VOMITING Oxycodone HCl (Oxyir) 5 - 10 mg PO Q4H PRN PRN PRN Reason: Pain Score 4-5/10 Last Admin: 02/05/20 06:28 Dose: 10 mg Documented by: Prochlorperazine Edisylate (Compazine Iv) 5 mg IV Q4H PRN PRN PRN Reason: Breakthrough nausea/vomiting Psyllium Hydrophilic Mucilloid (Metamucil) 1 packet PO DAILY PRN PRN PRN Reason: Constipation Senna/Docusate Sodium (Senokot-S, Basia-Colace) 2 tablet PO BID PRN PRN PRN Reason: Constipation Sodium Chloride () 10 - 40 ml IV UD PRN PRN Reason: SALINE FLUSH Last Admin: 02/05/20 09:14 Dose: 10 ml Documented by: Temazepam (Restoril) 15 mg PO QHS PRN PRN PRN Reason: INSOMNIA Throat Lozenges (Cepacol Sore Throat Lozenge) 1 lozenge MUCOUS MEM Q2H PRN PRN PRN Reason: SORE THROAT Assessment/Plan All Active Problems Sepsis (Acute) Preseptal cellulitis of right lower eyelid (Acute) Sepsis (Acute) Preseptal cellulitis of right eye (Acute) 1. Preseptal Cellulitis OD: Continue IV vancomycin and IV metronidazole, if no significant improvement in 12 hours, consider adding strep coverage with clindamycin. CT scan reviewed with no evidence of retroseptal extension, but given rapid development of symptoms and WBC count, need to watch closely for orbital extension. I will return to exam him this evening. 2. Chemosis OD: Continue ciprofloxacin q2 hours while awake right eye. There was evidence of nasolacrimal sac involvement per radiology on CT scan, dacryocystitis must be kept in the differential, however management involves settling acute infection, no surgical intervention is needed at this time. Ok to resume regular diet. Beena Ramirez MD
--- NOTE | 2020-02-05 12:00 | CASEMGMT ---
NAHUM DALAL Face to Face with patient for initial transition planning/care coordination assessment. RN CM introduced self and role at [facility]. Patient lying in bed, alert and oriented. Patient willing to participate in assessment and is able to answer all questions appropriately. Care providers, pharmacy, and demographics verified. Patient wishes to discharge home, denies need for home health at this time. Patient states he has no further needs or concerns at this time. CM to follow for discharge planning needs that may arise. PCP: No PCP, NAHUM DALAL to provided list of PCP Specialists: none [facility]erred [facility]acy: [facility] Insurance: [employer] Prescription Benefit: yes Living Will/HPOA: none LNOK: parents Living Arrangements: Patient lives with his parents in a ranch style home with no steps to enter. Patient states he is indpendent at home. Patient states he smokes 1ppd of cigarettes and marijuana twice a day. States he drinks a couple of beers occasionally. Patient denied resource related to drug, tobacco, and alcohol cessation. Transportation: self/parents DME/HHC: Patient denies DME or HHC. Disposition Plan: Patient to discharge home with family support and follow-up plans in place. Emilia DOYLE, RN, CM
[2020-02-05 14:22] LABS: Pathologist Review Reviewed
[2020-02-05] MEDS: Vancomycin IV 500 MG/100 ML BAG 100 MG IV (14:39)
--- NOTE | 2020-02-05 16:26 | PCM.HOSP.N ---
Hospitalist Note Patient was seen and examined today briefly, he was admitted for periorbital cellulitis, I have reviewed the patient's antibiotic coverage and decided to change his antibiotics coverage to Unasyn and vancomycin. I have stopped his Flagyl and Rocephin at this time. I called pharmacy to have them adjust his dose of vancomycin which I feel is too low for a gentleman his age with his renal function. The PCR on the eye drainage has not come back yet, I thought of doing a nasal swab to check for MRSA but it would not really change treatment at this time and so I decided to make the antibiotic changes as described above. Put a call into Dr. Ramirez to discuss the case and she will get back with me about it.
[2020-02-05 17:25] LABS: M R Staph aureus DNA By PCR Negative (Negative); Probe Check PASS; Specimen Processing Control PASS; Staph aureus DNA By PCR NEGATIVE (Negative)
[2020-02-05] MEDS: 0.9% Normal Saline 1,000 ML 125 ML IV (17:39)
[2020-02-06] VITALS (7 sets, daily range): BP systolic 117–143; BP diastolic 83–88; PULSE 88–104; RESP 18–20; TEMP 36.9–39.3; O2SAT 96–100
[2020-02-06] MEDS: Ciprofloxacin 0.3% 2.5ml Bottle 1 DRP RIGHT EYE ×9 (00:13→15:50)
[2020-02-06] MEDS: 0.9% Normal Saline 1,000 ML 125 ML IV ×2 (02:15→12:04)
[2020-02-06] MEDS: Acetaminophen 325 MG Tablet 650 MG PO ×2 (02:21→10:45)
[2020-02-06] MEDS: oxyCODONE 5 MG Tablet PO ×3 (02:24→14:18)
[2020-02-06] MEDS: Vancomycin IV 1,000 MG/200 ML BAG 200 MG IV ×2 (06:15→14:12)
[2020-02-06 06:48] LABS: Absolute Lymphocyte Count 0.98 X10^3/uL (0.83-4.51); Absolute Neutrophil Count 33.9 X10^3/uL (2.0-7.7); Basophil# 0.16 X10^3/uL; Basophil% 0.4 % (0-1); Eosinophil# 0.06 X10^3/uL; Eosinophils% 0.2 % (0-5); Hematocrit 42.1 % (40-54); Hemoglobin 14.7 g/dL (13.0-16.5); Lymphocyte # 0.98 X10^3/ul (4.0); Lymphocyte % 2.6 % (19-41); Mean Corp Hgb Conc 34.9 g/dL (32-36); Mean Corpuscular Hgb 32.7 pg (27.0-32.0); Mean Corpuscular Volume 93.8 fL (80-94); Mean Platelet Vol. 9.3 fl (6.2-12.0); Monocyte# 1.75 X10^3/uL; Monocyte% 4.6 % (0-10); NRBC Flagged by Analyzer 0 % (0-5); Neutrophil # 33.91 X10^3/uL (2.7-7.7); Neutrophil % 88.6 % (47-70); POSITIVE COUNT YES; POSITIVE DIFFERENTIAL YES; POSITIVE MORPHOLOGY YES; Platelet Count 329 K/mm3 (150-450); RBC Distribution Width CV 12.9 % (11.6-14.6); RBC Distribution Width SD 44.3 fl (35.1-43.9); Red Blood Count 4.49 M/mm3 (4.6-6.2)
[2020-02-06 06:51] LABS: Differential Indicated SCAN CRITERIA MET; White Blood Count 38.2 K/mm3 (4.4-11.0)
[2020-02-06 07:14] LABS: ALB/GLOB Ratio 0.6 RATIO (0.9-2.4); AST(SGOT) 26 U/L (15-37); Alanine Aminotransfer ALT/SGPT 32 U/L (16-61); Albumin, Serum 2.3 g/dL (3.2-5.0); Alkaline Phosphatase 69 U/L (45-117); Anion Gap 5 (5-15); BUN 7 mg/dL (7-18); BUN/Creat Ratio 8.6 RATIO (10-20); Calcium,Total 7.6 mg/dL (8.5-10.1); Chloride 99 mmol/L (98-107); Creatinine, Serum 0.81 mg/dL (0.70-1.30); EST Glomerular Filtration Rate 116 mL/min (>60); Est Glom Filt Rate - Afr Amer 141 mL/min (>60); Estimated Creatinine Clearance 114.07 ml/min; Globulin 4.1 g/dL (2.2-4.2); Glucose 102 mg/dL (74-106); Potassium 3.3 mmol/L (3.5-5.1); Protein, Total 6.4 g/dL (6.4-8.2); Sodium Level 130 mmol/L (136-145)
[2020-02-06 07:17] LABS: Differential Comment SCANNED
[2020-02-06 07:19] LABS: Atypical Lymphocyte RARE %
[2020-02-06] MEDS: Famotidine 20 MG Tablet PO (07:47)
--- NOTE | 2020-02-06 08:40 | CT_ITS ---
STUDY: CT FACIAL BONES WITH CONTRAST REASON FOR EXAM: Male, 34 years old. PERIORBITAL RT SIDE INFECTION,VISION IMPAREMENT, MEDIAL LACRIMAL GLAND INFECTION RADIATION DOSAGE (If Supplied By Facility): CTDIvol = ( 29.38 ) mGy, DLP = ( 1069.02 ) mGycm TECHNIQUE: The patient was scanned in a multi detector CT scanner. Transaxial imaging was performed following the intravenous administration of IV 100mL Isovue-300. Sagittal and coronal images were reconstructed. Individualized dose optimization techniques were used for this CT. COMPARISON: Comparison is made with prior study dated February 05, 2020. FINDINGS: Since prior study, there has been progressive infiltration of the subcutaneous fat involving the right upper cervical region extending into the region of the masseter muscle as well as the premaxillary region and the preorbital region of the right side. There is also soft tissue swelling of the region of the prefrontal soft tissues. There is increased vascularity in the deep inflammatory tissues on the right side. There is also evidence of a soft tissue swelling of the right earlobe. The soft tissue swelling also extends into the right side of the nasal soft tissues Normal orbital aleman and orbital contents. Normal nasal bones and anterior nasal spine. Normal facial bones. There is no demonstrated fracture. Mucosal thickening of the right maxillary sinus along its lateral aspect. CT/Sinus/Facial Bone WITH Contras IMPRESSION: Since prior study, there has been progression of the cellulitis basically involving the right side of the cranium extending into the upper cervical region. There is overlying thickening of the skin. There is increased vascularity as well. Electronically Signed: Monster Wong, at 9:32 EDT , Service support ,
[2020-02-06] MEDS: 0.9% Saline Lock 10 ML Syringe IV (10:33)
[2020-02-06] MEDS: HYDROmorphone 0.5 MG/0.5 ML SYRINGE IV ×2 (10:33→15:50)
[2020-02-06] MEDS: Erythromycin Base 1 OPTH.TUBE 1 APPLIC OPHTHALMIC ×2 (10:34→14:12)
--- NOTE | 2020-02-06 12:12 | PCM.PN.BLA ---
Progress Note S: Patient reports worsening fevers overnight. States his face is having more pain and pressure. O: VA: sc OD: J5 OS: J3 PERRL no APD motility: OS normal, OD abnormal with limitation in supraduction and abduction External Bedside Exam with 20 D lens Face: 3+ edema, upper and lower eyelids, cheek, episcopal, right ear Lids:maceration of upper eyelid skin OD, OS normal mattering on the lashes with mucoid discharge Conjunctiva: 2+ injection and chemosis superotemporal Cornea: clear Lens: clear A/P: 1. Preseptal Cellulitis OD: worsening Limited mobility of right eye is concerning for orbital extension Obtain stat CT scan face/orbits/sinus with and without contrast Begin erythromycin ointment four times daily to eyelid skin Continue ciprofloxacin q2 hours while awake OD. Continue IV Vancomycin and Unasyn Plan to discuss IV antibiotic coverage with Infectious Disease Beena Ramirez MD STROKE Vital Signs/Narrative: Vital Signs Temp Pulse Resp BP Pulse Ox 02/06/20 10:31 100.5 F H 100 18 143/88 H 98
[2020-02-06 12:23] LABS: Pathologist Review Reviewed
--- NOTE | 2020-02-06 13:44 | CASEMGMT ---
Tertiary facilities in-network with patient's insurance: [facility], [facility], [facility], [facility], [facility].
--- NOTE | 2020-02-06 15:35 | NURSING ---
Report called to [facility] at this time.
--- NOTE | 2020-02-07 08:12 | PCM.DC.SUM ---
Discharge Date and Diagnosis Date of Admission: 02/05/20 Date of Discharge: 02/06/20 - Primary Discharge Diagnosis Acute Problems: #1 orbital cellulitis right eye #2 periorbital cellulitis right eye #3 acute sepsis secondary to #1 and #2 - Secondary Discharge Diagnosis Chronic Problems: Chronic Problems Tobacco use (Chronic) Hospital Course and Treatment Operations: None Procedures: None Summary of Care Provided: The patient is a 34 year old M seen in the emergency room at [facility] with complaints of extreme swelling in the right facial area including the right lower and upper eyelid. Work-up in the emergency room included a CT which revealed evidence of periorbital cellulitis, patient's white count was highly elevated and he met sepsis criteria. Patient was given IV antibiotics and admitted to [place] [id number], he was seen in consultation by ophthalmology, after 24 hours his condition worsened and it was recommended by ophthalmology that his CT scan of his face be repeated. This was repeated on 02/06/2020 and showed evidence of orbital cellulitis according to ophthalmology (this was not the official read out from radiology). I discussed this with ophthalmology, ophthalmology felt it would be prudent to transfer the patient to a tertiary care center where there was consultation from an oculoplastic surgeon available. On 02/06/2020, patient was examined: On examination he was appropriate, patient had discomfort due to right facial swelling. Vital signs as documented. Skin-extreme swelling over the right cheek, upper and lower eyelid areas, and right lateral face was noted, there was tenderness noted in the periorbital region on the right to palpation. Neck without JVD, neck was supple, trachea midline, thyroid was normal. Lungs clear bilaterally, normal air movement was noted. Heart exam notable for regular rhythm, normal sounds and absence of murmurs, rubs or gallops. Abdomen unremarkable and without evidence of organomegaly, masses, or abdominal aortic enlargement. Bowel sounds are present, abdomen is not distended. Extremities nonedematous, no cyanosis was noted, no clubbing was noted. Neuro: Cranial nerves II through XII are grossly intact, no focal motor deficits were noted, sensation to light touch and pinprick intact, motor exam 5/5 throughout. Psych: Patient is alert and oriented x3, he does not appear anxious or depressed, he does not appear agitated. On 02/06/2020, patient was seen and examined and transferred to [facility] for further care - Physical Exam Vitals/I&O's: Vital Signs Temp Pulse Resp BP Pulse Ox 98.8 F 88 20 H 117/83 H 98 02/06/20 14:15 02/06/20 14:15 02/06/20 14:15 02/06/20 14:15 02/06/20 14:15 Oxygen Delivery Method Room Air Weight: 61.6 kg Body Mass Index (BMI) 18.3 Intake and Output for Last 24 Hours 02/05/20 02/06/20 02/07/20 23:59 23:59 23:59 Intake Total 4686.38 / 4686.38 3958.91 / 3958.91 Balance 4686.38 / 4686.38 3958.91 / 3958.91 Microbiology Past 72 Hours 02/05/20 06:30 Discharge - Eye Gram Stain - Final 02/05/20 06:30 Discharge - Eye Wound Culture - Preliminary Mixed Gram Positive Organisms Beta hemolytic organism Laboratory Results 02/06/20 06:02: Diff Path Review Reviewed Home Medications: Medications to take at Discharge NK 12/11/19 Primary Care Physician: Care Physician,No Primary [Primary Care Provider] - Disposition: Acute care Hospital Minutes spent on discharge:: 31 Patient Condition:: Stable Medical Necessity - Tobacco Use Smoking Status: Current every day smoker Tobacco Use: Cigarettes Meaningful Use Info Meaningful Use Diagnoses (Choose all that apply): None applicable Inpatient E&M: 21176 Disch Hosp
== END 2020-02-06 16:10 | disposition short-term general hospital (02) | DRG 720 ==
LOC: ED 05:12 → MS3 06:05
PROVIDERS: Admitting Provider Family Medicine; Emergency Provider Emergency Medicine; Referring Provider Family Medicine; Visit Provider Internal Medicine
DX: A41.9 Sepsis, unspecified organism (principal); L03.213 Periorbital cellulitis; H05.011 Cellulitis of right orbit; F17.210 Nicotine dependence, cigarettes, uncomplicated; H11.421 Conjunctival edema, right eye
CPT/HCPCS: 36415; 70487; 80048; 80053; 83605; 85025; 87040; 87070; 87077; 87186; 87205; 87640; 97802; 99285; J7030; Q9967; A4216; J0295

== ENCOUNTER 2021-06-29 13:48 | Emergency (ER) | payer MEDICAID, SELFPAY ==
[2021-06-29 13:48] VITALS: BP 151/103; PULSE 108; RESP 15; TEMP 36.3; O2SAT 98; BMI 18.9
--- NOTE | 2021-06-29 14:06 | RAD_ITS ---
STUDY: X-RAY - LEFT HAND REASON FOR EXAM: Male, 36 years old. osteomy litis TECHNIQUE: 3 view(s) of the hand. COMPARISON: None. FINDINGS: Normal radiocarpal articulation. Normal distal radioulnar joint. Normal visualized carpal bones. Normal carpal articulations Normal carpometacarpal articulation of the thumb. Normal second through fifth carpometacarpal joints. Normal metacarpi. Normal metacarpophalangeal joint of the thumb. Normal interphalangeal joint of the thumb. Normal proximal and distal phalanges of the thumb. Normal metacarpophalangeal joints of the second through fifth fingers. Normal proximal and distal interphalangeal joints of the second through fifth fingers. Deformity of the tuft of the distal phalanx of the third and fourth digits. The soft tissue structures are unremarkable. RAD/Hand Min 3 Views IMPRESSION: Deformity of the tuft of the distal phalanx of the third and fourth digits. Electronically Signed: Monster Wong MD at 14:46 EST , Service support ,
--- NOTE | 2021-06-29 14:36 | EX.ED.UPPERE ---
HPI History of Present Illness Chief Complaint: Upper Extremity Injury Informant: patient Occured/Mechanism Mechanism/Context: Yes other see comment below Comment: Pain after painting yesterday Onset/Context/Timing Context: Sudden Onset Timing: Continuous Quality of Pain: Aching and - (Pain) Location: First compartment of the extensor tendon left wrist Current Severity: Moderate Maximum Severity: Severe Worsened by: Movement of breast Relieved by: Improves with rest Associated Symptoms Associated Symptoms: Positive for Loss of Funtion Narrative Narrative: Patient is a 36-year-old [id number] male who presents with left wrist pain. States he was painting yesterday. He has severe pain and swelling of his left wrist. He localized the pain distal radial side of the left wrist. He denies paresthesia, anesthesia medics. He reports significant pain with active movement of the thumb. He denies history of diabetes, hypertension, renal disease or peptic ulcer disease. Tetanus Immunization: Unknown Prior similar symptoms: No Recent Illness/Hospitalization: No PFSH PFSH Home Medications naproxen 500 mg PO BID #20 tab 06/29/21 [Rx Last Taken Unknown] Allergy/AdvReac Type Severity Reaction Status Date / Time No Known Allergies Allergy Verified 06/29/21 13:48 Surgical History H/O vasectomy Social History (Updated 06/29/21 @ 14:[address] Mohan Mcqueen MD) household members: family Smoking Status: Current every day smoker substance use type: does not use ROS ROS ED Constitutional Constitutional ED: Denies chills, fever(s), subjective, sweats or weight loss Musculoskeletal Musculoskeletal: Reports other Details: Left wrist and thumb pain ; Denies back pain, myalgias or neck pain Integumentary Denies abscess, Abrasions or rash Neurologic Neurologic: Denies paresthesias or weakness Hematologic/Lymphatic Hematologic/Lymphatic: Denies easy bleeding or easy bruising EXAM Physical Exam Const Vital Signs: 06/29/21 13:48 Temperature 97.3 F L Temperature Source Temporal Pulse Rate 108 H Respiratory Rate 15 Blood Pressure 151/103 H Blood Pressure Mean 119 Pulse Ox 98 Oxygen Delivery Method Room Air Positive well nourished and well developed General Appearance ED: well developed; Negative for cyanotic or diaphoretic HEENT normocephalic and atraumatic Eyes PERRL and EOMs intact bilaterally Resp normal respiratory effort Cardio regular rate and regular rhythm Extremity Negative for normal to inspection or full ROM Extremity Narrative: Patient has swelling of the distal left wrist radial side. Positive Doris test. There is discomfort with palpation of the abductor longus tendon and the extensor pollicis brevis tendon. There is slight erythema over the first compartment of the extensor tendons. There is no lymphangitis. There is no epitrochlear or axillary lymphadenopathy. There is no pain no patient over the thenar eminence or hyperthenar eminence. There is no other abnormality noted. Median, radial and ulnar function intact. General Extremety ED: Yes edema and other findings General Extremity: edema and other findings Neuro oriented x3 and CN's II-XII intact bilaterally Sensorium / Orientation: alert Psych mental status grossly normal Skin General Skin Exam: Negative for petechiae Lesions: no lesions and No lesion noted Rashes: No no rashes Trauma: no lacerations or abrasions; Negative for abrasion, laceration or puncture MDM MDM MDM Narrative Medical decision making narrative: Patient has history and physical exam consistent with De Quevenne tenosynovitis. Since he has no contraindication to NSAIDs he was treated with NSAIDs and cock-up splint. He was referred to orthopedist on-call. Discharge Plan Triage Chief Complaint: Upper Extremity Injury ED Provider: Mohan Mcqueen Dx/Rx/DC Orders Clinical Impression: De Quervain's tenosynovitis, left Instructions: De Quervain Tenosynovitis Prescriptions: New naproxen 500 MG tablet 500 mg PO BID Qty: 20 RF: 0 Primary Care Provider: Care Physician,No Primary Referrals: Deshawn Zelaya MD [STAFF PHYSICIAN] - 1 Week if not improving Care Physician,No Primary [Primary Care Provider] - Disposition Disposition: Home, Self Care
[2021-06-29] MEDS: Naproxen 250 MG Tablet 500 MG PO (15:00)
[2021-06-29 15:09] VITALS: BP 146/91; PULSE 96; RESP 16; O2SAT 97
--- NOTE | 2021-06-29 15:10 | ED.RN ---
REVIEWED D/C INSTRUCTIONS, FOLLOW UP CARE, PRESCRIPTION, AND S/S THAT WOULD WARRANT A RETURN TO THE ED WITH PT. PT VERBALIZED AN UNDERSTANDING AND DENIES FURTHER QUESTIONS FOR THIS RN. PT SKIN P/W/D, RESP EVEN AND UNLABORED, PT A&O X 3, NO DISTRESS NOTED. PT AMBULATED OUT OF ED, GAIT STEADY.
== END 2021-06-29 15:11 | disposition home or self-care (01) ==
PROVIDERS: Emergency Provider Emergency Medicine; PCP Nurse Practitioner Family
DX: M65.4 Radial styloid tenosynovitis [de Quervain] (principal); F17.200 Nicotine dependence, unspecified, uncomplicated
CPT/HCPCS: 73130; 99283

== ENCOUNTER 2024-02-25 14:59 | Emergency (ER) | payer MEDICAID, SELFPAY ==
[2024-02-25 15:00] VITALS: BP 103/66; PULSE 140; RESP 18; TEMP 36.6; O2SAT 100; O2SAT 98; BMI 20.1
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
[2024-02-25 15:12] VITALS: TEMP 37.2
[2024-02-25] MEDS: fentaNYL 100 MCG/2 ML Ampul IV (15:14)
--- NOTE | 2024-02-25 15:15 | ED.RN ---
THIS RN OVERRODE 100MCG OF FENTANYL FROM ACCUDOSE FOR MEDNJIGHT
--- NOTE | 2024-02-25 15:16 | ED.RN ---
1514- 125 SUC'S GIVEN, AND 30 OF ATOMIDATE -133/112 HR 143, O2 100 1516- [address] PACK. 1516- 100 OF FENATYL GIVEN. 1517- 1 CA CHLORIDE GIVEN. 110/80, HR 110, O2 100
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
--- NOTE | 2024-02-25 15:33 | ED.RN ---
REPORT CALLED TO JESSEE SIDHU AT [facility].
[2024-02-25 15:34] VITALS: BP 110/73; PULSE 64; RESP 18; TEMP 36.4; O2SAT 99
--- NOTE | 2024-02-25 15:41 | ED.RN ---
RICKEY SIDHU SPOKE WITH GIRLFRIEND AND LEFT MESSAGE FOR PT. MOM OF TRANSFER TO [facility].
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
== END 2024-02-25 15:36 | disposition short-term general hospital (02) ==
PROVIDERS: Emergency Provider Emergency Medicine; PCP Nurse Practitioner Family; Visit Provider Emergency Medicine
DX: S01.83XA Puncture wound without foreign body of other part of head, initial encounter (principal); I95.9 Hypotension, unspecified; R00.0 Tachycardia, unspecified; Y24.9XXA Unspecified firearm discharge, undetermined intent, initial encounter
CPT/HCPCS: G0463; 31500; 71045; 72170; 86900; 86901; 96374; 96375; 99252; 99284; J7030; J7040; P9016; A4216

== ENCOUNTER 2024-04-01 17:39 | Emergency (ER) | payer MEDICAID, SELFPAY ==
[2024-04-01] VITALS (7 sets, daily range): BP systolic 98–110; BP diastolic 62–75; PULSE 60–82; RESP 15–24; TEMP 36.2–37.2; O2SAT 95–100
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
--- NOTE | 2024-04-01 18:20 | ED.RN ---
FEEDING TUBE PRESENT. PATIENT STATES HE HAS NOT PUT ANYTHING THROUGH IT. SOME REFLUX NOTED IN THE TUBE. PATIENT C/O PAIN AROUND THE SITE.
--- NOTE | 2024-04-01 18:49 | CT_ITS ---
EXAM: CT ANGIOGRAPHY CHEST WITHOUT AND WITH INTRAVENOUS CONTRAST CLINICAL INDICATION: SOB TECHNIQUE: Helically acquired angiography images were obtained of the chest without and with intravenous contrast. This CT exam was performed using one or more of the following dose reduction techniques: automated exposure control, adjustment of the mA and/or kV according to patient size, and/or use of iterative reconstruction technique. MIP reconstructed images were created and reviewed. CONTRAST: IV 100mL Isovue-370 RADIATION DOSE: CTDIvol = 9.43 mGy, DLP = 249.12 mGy-cm COMPARISON: No relevant prior studies available. FINDINGS: PULMONARY ARTERIES: Unremarkable. Normal in caliber. No evidence of pulmonary embolism. AORTA: Unremarkable. Normal in caliber. No evidence of dissection. GREAT VESSELS OF AORTIC ARCH: Unremarkable. Normal in caliber. No evidence of dissection. LUNGS AND PLEURAL SPACES: Slight groundglass opacities at the bilateral anterior lungs may be minimal pneumonitis. No confluent alveolar infiltrate. Small blebs or bullae at the lung apices. No mass. No pleural effusion or thickening. HEART: Unremarkable. Heart size is normal. No pericardial effusion. No significant coronary artery calcifications. MEDIASTINUM: Unremarkable. No mediastinal or hilar adenopathy. Esophagus is unremarkable. No hiatal hernia. THYROID: Unremarkable. No thyroid lesions. BONES/JOINTS: Unremarkable. No suspicious lytic or blastic abnormality. TUBES, LINES AND DEVICES: Adequately positioned tracheostomy tube. No visible intraluminal debris or narrowing of the central airways. CT/CTA Chest W/WO Contrast IMPRESSION: No PE or aortic aneurysm or dissection. Adequately positioned tracheostomy tube. Chronic lung changes. Slight groundglass opacities in the anterior lungs, uncertain chronicity, possibly minimal pneumonitis. Also mildly prominent interstitial pattern, possibly interstitial-type pneumonitis. Electronically Signed: Gita Ann MD at 20:28 EDT ,
--- NOTE | 2024-04-01 18:50 | EKG12_ITS ---
Test Reason : SOB Blood Pressure : / mmHG Vent. Rate : 060 BPM Atrial Rate : 060 BPM P-R Int : 152 ms QRS Dur : 088 ms QT Int : 418 ms P-R-T Axes : 033 062 052 degrees QTc Int : 418 ms Normal sinus rhythm Minimal voltage criteria for LVH, may be normal variant ( Sokolow-Bundy ) Borderline ECG Confirmed by GERMAINE BRAGG MD ([id number]), news videotape editor XOCHITL WHALEN ([id number]) on 04/02/2024 1:22:12 PM Referred By: Confirmed By:GERMAINE BRAGG MD
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
[2024-04-01 19:05] LABS: Absolute Lymphocyte Count 2.32 X10^3/uL (0.83-4.51); Absolute Neutrophil Count 3.9 X10^3/uL (2.0-7.7); Basophil% 1.4 % (0-1); Eosinophil# 0.16 X10^3/uL; Eosinophils% 2.2 % (0-5); Hematocrit 33.8 % (40-54); Hemoglobin 10.9 g/dL (13.0-16.5); Lymphocyte # 2.32 X10^3/ul (0.83-4.51); Lymphocyte % 31.6 % (19-41); Mean Corp Hgb Conc 32.2 g/dL (32-36); Mean Corpuscular Hgb 29.3 pg (27.0-32.0); Mean Corpuscular Volume 90.9 fL (80-94); Mean Platelet Vol. 10.3 fl (6.2-12.0); Monocyte# 0.89 X10^3/uL; Monocyte% 12.1 % (0-10); NRBC Flagged by Analyzer 0 % (0-5); Neutrophil # 3.86 X10^3/uL (2.7-7.7); Neutrophil % 52.4 % (47-70); Platelet Count 323 K/mm3 (150-450); RBC Distribution Width CV 14.3 % (11.6-14.6); RBC Distribution Width SD 47.5 fl (35.1-43.9); Red Blood Count 3.72 M/mm3 (4.6-6.2); White Blood Count 7.4 K/mm3 (4.4-11.0)
[2024-04-01 19:17] LABS: Anion Gap 7 (5-15); BUN 14 mg/dL (7-18); BUN/Creat Ratio 17.8 RATIO (10-20); Calcium,Total 9.5 mg/dL (8.5-10.1); Chloride 109 mmol/L (98-107); Creatinine, Serum 0.79 mg/dL (0.70-1.30); EST Glomerular Filtration Rate 118 mL/min (>60); Est Glom Filt Rate - Afr Amer 143 mL/min (>60); Glucose 108 mg/dL (74-106); Potassium 3.4 mmol/L (3.5-5.1); Sodium Level 142 mmol/L (136-145); Troponin-I HS < 3 pg/mL (3.0-78.0)
[2024-04-01 19:47] LABS: BNP,B-Type NATRIURETIC PEPTIDE 17.2 pg/mL (0-100)
[2024-04-01] MEDS: Metoclopramide 10 MG/2 ML Vial 5 MG IV (20:00)
[2024-04-01 21:26] LABS: Amphetamine Urine VISTA NEGATIVE (<1000 ng/mL); Barbiturate Urine VISTA POSITIVE (< 200 ng/mL); Benzodiazepine Urine VISTA NEGATIVE (< 200 ng/mL); Cocaine Urine VISTA NEGATIVE (< 300 ng/mL); Ecstacy Urine VISTA NEGATIVE (< 500 ng/mL); Methadone Urine VISTA NEGATIVE (< 300 ng/mL); PCP Urine VISTA NEGATIVE (< 25 ng/mL); THC Urine VISTA POSITIVE (< 50 ng/mL); Vista UDS pH Range 7
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
== END 2024-04-01 22:20 | disposition home or self-care (01) ==
PROVIDERS: Emergency Provider Emergency Medicine; PCP Nurse Practitioner Family; Visit Provider Emergency Medicine
DX: R06.02 Shortness of breath (principal); Z93.0 Tracheostomy status; J18.9 Pneumonia, unspecified organism; E87.6 Hypokalemia
CPT/HCPCS: 31720; 70450; 71275; 80048; 80307; 82077; 83880; 84484; 85025; 87631; 93005; 96374; 99284; Q9967; A4216

== ENCOUNTER 2024-04-09 01:55 | Emergency (ER) | payer MEDICAID, SELFPAY ==
[2024-04-09 01:57] VITALS: BP 122/78; PULSE 85; RESP 16; TEMP 36.6; O2SAT 100
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
[2024-04-09 02:25] VITALS: BP 107/73; PULSE 82; RESP 16; TEMP 36.9; O2SAT 100
--- NOTE | 2024-04-09 02:34 | ED.RN ---
SIZE 6 TRACHEOSTOMY TUBE REPLACED BY PRIMARY MD AND RESPIRATORY THERAPIST. SPLIT GAUZE APPLIED.
--- NOTE | 2024-04-09 02:40 | CPS ---
Pt came to emergency dept. after his current tracheostomy tube fell out at home. Pt currently with an open stoma having no complications with breathing. A new size 6 tracheostomy tube was then place in pt's stoma successfully with no complication and secured with trach ties and added drain sponge.
== END 2024-04-09 02:35 | disposition home or self-care (01) ==
LOC: ED 02:32
PROVIDERS: Emergency Provider Emergency Medicine; PCP Nurse Practitioner Family; Visit Provider Emergency Medicine
DX: J95.03 Malfunction of tracheostomy stoma (principal); R06.02 Shortness of breath; Z87.820 Personal history of traumatic brain injury; S01.9 Open wound of unspecified part of head
CPT/HCPCS: 99283

== ENCOUNTER 2025-01-26 08:53 | Emergency (ER) | payer MEDICAID, SELFPAY ==
[2025-01-26 08:55] VITALS: BP 131/101; PULSE 111; RESP 16; TEMP 36.6; O2SAT 99; BMI 19.5
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
[2025-01-26 09:19] VITALS: BP 131/101; PULSE 111; RESP 16; TEMP 36.6; O2SAT 99
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
[2025-01-26 09:47] LABS: Hematocrit 42.7 % (40-54); Hemoglobin 14.3 g/dL (13.0-16.5); Immature Granulocytes Count 0.220 X10^3/uL (0.0-0.0); Mean Corp Hgb Conc 33.5 g/dL (32-36); Mean Corpuscular Volume 91.4 fL (80-94); Mean Platelet Vol. 8.7 fl (6.2-12.0); NRBC Flagged by Analyzer 0 % (0-5); POSITIVE DIFFERENTIAL YES; Platelet Count 550 K/mm3 (150-450); RBC Distribution Width CV 13.5 % (11.6-14.6); RBC Distribution Width SD 45.8 fl (35.1-43.9); Red Blood Count 4.67 M/mm3 (4.6-6.2); White Blood Count 14.1 K/mm3 (4.4-11.0)
[2025-01-26 09:57] LABS: Differential Indicated SCAN CRITERIA MET
[2025-01-26 10:21] LABS: Anion Gap 12 (5-15); BUN 18 mg/dL (4-19); BUN/Creat Ratio 18.4 RATIO (10-20); Calcium,Total 8.9 mg/dL (7.6-11.0); Carbon Dioxide 25.4 mmol/L (21.0-32.0); Chloride 99 mmol/L (98-108); Estimated Creatinine Clearance 89.40 ml/min (50-250); Glucose 92 mg/dL (70-99); Potassium 4.1 mmol/L (3.3-5.1)
[2025-01-26 10:42] LABS: Differential Comment SCANNED
[2025-01-26 10:54] VITALS: BP 128/99; PULSE 99; RESP 18; O2SAT 99
[2025-01-26 12:00] VITALS: BP 113/84; PULSE 101; RESP 18; O2SAT 99
[2025-01-26] MEDS: Piperacil/Tazobactam 4.5 GM in 0.9% Normal Saline (100mL MB+) 100 ML IV (12:58)
--- NOTE | 2025-01-26 13:02 | ED.RN ---
when this rn was in pts room administering atb, pts mother comes in with 2 cups of coffee and attempts to give one to the patient. this rn asks if they had asked the doctor about the coffee- mother states they had not asked. this rn finishes scanning med and goes to ask dr. kebede if the patient can have coffee. per dr. kebede, she does not know what the plan is once he is transferred regarding his surgery so she would like to keep him NPO at this time. this rn informs patient that he is unable to have anything to eat or drink at this time. pt gets agitated and begins swinging his arms and grabbing at his iv. this pt states this is fucking bullshit. i've been here for four fucking hours and i just want to go home. this rn informs patient that she will update the provider at this time. Dr. Kebede and Tatyana, charge nurse have been updated at this time.
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
[2025-01-26 13:40] VITALS: BP 114/74; PULSE 105; RESP 18; TEMP 37; O2SAT 99
== END 2025-01-26 13:50 | disposition left against medical advice (07) ==
PROVIDERS: Emergency Provider Surgery; PCP Nurse Practitioner Family; Visit Provider Surgery
DX: T84.7XXA Infection and inflammatory reaction due to other internal orthopedic prosthetic devices, implants and grafts, initial encounter (principal); L02.01 Cutaneous abscess of face; L03.211 Cellulitis of face; F17.210 Nicotine dependence, cigarettes, uncomplicated; Z53.29 Procedure and treatment not carried out because of patient's decision for other reasons; D72.829 Elevated white blood cell count, unspecified; D75.839 Thrombocytosis, unspecified; Y79.2 Prosthetic and other implants, materials and accessory orthopedic devices associated with adverse incidents; Z23 Encounter for immunization
CPT/HCPCS: 36415; 70487; 80048; 83605; 85025; 87040; 90471; 90715; 96365; 96375; 99282; Q9967; A4216

== ENCOUNTER 2025-03-17 10:42 | Emergency (ER) | payer MEDICAID, SELFPAY ==
[2025-03-17 10:42] VITALS: BP 116/81; PULSE 111; RESP 20; TEMP 37.1; O2SAT 98
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
[2025-03-17 11:53] LABS: Hematocrit 43.6 % (40-54); Hemoglobin 14.5 g/dL (13.0-16.5); Immature Granulocytes Count 0.110 X10^3/uL (0.0-0.0); Mean Corp Hgb Conc 33.3 g/dL (32-36); Mean Corpuscular Volume 93.0 fL (80-94); Mean Platelet Vol. 9.3 fl (6.2-12.0); NRBC Flagged by Analyzer 0 % (0-5); Platelet Count 368 K/mm3 (150-450); RBC Distribution Width CV 14.2 % (11.6-14.6); RBC Distribution Width SD 48.8 fl (35.1-43.9); Red Blood Count 4.69 M/mm3 (4.6-6.2); White Blood Count 11.4 K/mm3 (4.4-11.0)
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
[2025-03-17 12:45] VITALS: BP 110/50; PULSE 92; RESP 24; TEMP 38.6; O2SAT 98
[2025-03-17] MEDS: 0.9% Normal Saline (1000mL) 1,000 ML 1000 ML IV (13:01)
[2025-03-17] MEDS: Vancomycin HCl 1,000 MG in 0.9% Normal Saline (250mL Bag) 250 ML 167 MG IV (13:02)
[2025-03-17 13:06] LABS: Anion Gap 11 (5-15); BUN 14 mg/dL (4-19); BUN/Creat Ratio 15.4 RATIO (10-20); Calcium,Total 9.1 mg/dL (7.6-11.0); Carbon Dioxide 25.4 mmol/L (21.0-32.0); Chloride 105 mmol/L (98-108); Estimated Creatinine Clearance 97.40 ml/min (50-250); Glucose 92 mg/dL (70-99); Potassium 4.8 mmol/L (3.3-5.1)
[2025-03-17 14:00] VITALS: BP 124/76; PULSE 79; RESP 18; TEMP 37.1; O2SAT 97
[2025-03-17 15:00] VITALS: BP 125/76; PULSE 83; RESP 16; TEMP 36.9; O2SAT 97
[2025-03-17 15:04] VITALS: BP 125/76; PULSE 83; RESP 16; TEMP 36.8; O2SAT 97
--- NOTE | 2025-03-17 15:30 | ED.RN ---
this nurse attempted to call with a pt report for ed to ed transfer. called at 15:17 and waited on hold for 4:55. this attempted a second time to call report at 15:24 and waited on hold for an additional 5 minutes. this nurse hung up d/t needing to care for pts and not being able to wait on hold to give the ed the pt report
== END 2025-03-17 15:09 | disposition short-term general hospital (02) ==
LOC: ED 11:52
PROVIDERS: Emergency Provider Emergency Medicine; PCP Nurse Practitioner Family; Visit Provider Emergency Medicine
DX: T81.40XA Infection following a procedure, unspecified, initial encounter (principal); R50.9 Fever, unspecified; M79.89 Other specified soft tissue disorders; F17.210 Nicotine dependence, cigarettes, uncomplicated; D72.829 Elevated white blood cell count, unspecified; Y83.9 Surgical procedure, unspecified as the cause of abnormal reaction of the patient, or of later complication, without mention of misadventure at the time of the procedure
CPT/HCPCS: 70487; 80048; 83605; 85025; 96365; 96366; 96375; 99283; Q9967; A4216